=== PATIENT | male | born 1975 | race Caucasian/White ===

== ENCOUNTER 2025-05-07 14:32 | Emergency (ER) | payer OTHER, SELFPAY ==
--- NOTE | ~2025-05-07 | XR_ITS ---
EXAMINATION: XR foot RT min 3V, 05/07/2025 14:42 [employer] HISTORY: injury, pain COMPARISON: No comparisons available. Findings: There are displaced fractures of the shafts of the second and third metatarsals. No dislocation. No significant degenerative changes. Soft tissue swelling. Impression: Fractures detailed above Reviewed, dictated and finalized at location P. [employer] Impression: Fractures detailed above
[2025-05-07 14:35] VITALS: BP 158/94; PULSE 113; RESP 18; TEMP 36.8; O2SAT 97
--- NOTE | 2025-05-07 15:02 | ED_ITS ---
HPI - Extremity Injury (Lower) General Chief Complaint: Extremity Injury, Lower Stated Complaint: right foot injury patient presents to the [facility] with complaints of pain, swelling, and bruising to right foot that began last night. Patient noted getting his foot stuck between a concrete step and his screen door. Noted he is using crutches due to being unable to put any weight on this foot without significantly increased pain. Does have some numbness in the middle toes. Related Data Allergies Allergy/AdvReac Type Severity Reaction Status Date / Time Penicillins Allergy Unknown Unknown Verified 05/07/25 14:33 Review of Systems Constitutional: Constitutional: Reports as per HPI, Denies chills, Denies fatigue, Denies fever(s) and Denies weakness Eyes: Eyes: Reports no additional eye complaints ENT: Reports system reviewed and no additional complaints, except as documented Cardiovascular: Cardiovascular: Reports no additional cardiovascular complaints Respiratory: Respiratory: Reports no additional respiratory complaints Gastrointestinal: Gastrointestinal: Reports no additional gastrointestinal complaints Genitourinary: Genitourinary: Reports no additional male genitourinary complaints Musculoskeletal: Musculoskeletal: Reports as per HPI, Reports arthralgias, Reports joint swelling and Denies muscle cramps Integumentary/Breasts: Skin/Breast: Reports as per HPI, Denies pruritus, Denies rash and Denies skin ulcer Comments: Bruising right foot Neurologic: Reports as per HPI, Reports numbness and Denies weakness Psychiatric: Psychiatric: Reports no additional psychiatric complaints Endocrine: Endocrine: Reports no additional endocrine complaints Hematologic/Lymphatic: Hematologic/Lymphatic: Reports no additional hematologic/lymphatic complaints Allergic/Immunologic: Allergic/Immunologic: Reports no additional allergic/immunologic complaints PMFSH Family History Family History Father Diabetes mellitus Hypertension Mesothelioma Social History Social History (Updated 01/20/25 @ 08:14 by Merline De La Torre [facility]) Smoking status: Never smoker Do You Feel Safe in your Home?: Yes Lack of Transportation: No Lack of Food: Never True Current Housing: I Have Housing Concerned About Future Housing: No Difficulty Paying Gas/Electric Bills: No Difficulty Paying for Meds: No Currently Unemployed: No Education: High School Diploma/GED Difficulty w/ Childcare or Family Care: No Exam Const: General: healthy appearing and no acute distress Nutritional Appearance: well nourished Orientation/consciousness: patient oriented x3 Limitations: no limitations Resp: Effort & Inspection: normal respiratory effort Auscultation: clear to auscultation bilaterally Cardio: Rate: regular rate Rhythm: regular rhythm Skin: General skin exam: normal color Rashes: no rashes Wounds: no wounds Neuro: General: patient oriented x3 Gait exam (Neuro): Normal gait present ( using crutches, limited by pain) Extrem: Right lower extremity: foot Details: normal capillary refill, abnormal to inspection, tenderness Location: of the dorsal foot, abnormal ROM of toe, edema ( moderate) Location: of the dorsal foot, ecchymosis (dorsal foot ) and vascular exam Details: dorsalis pedis pulse present, posterior tibial pulse present and normal capillary refill; abnormal to inspection, ROM of toes abnormal, no unusual warmth, no abrasion, no laceration, no crepitus, no foreign bodies and no puncture wound Psych: Mental Status: mental status grossly normal Affect: normal affect Attitude: cooperative Course Course Level of Care: Express Care Visit Vital Signs Vital signs: Vital Signs Temperature 98.2 F 05/07/25 14:35 Pulse Rate 113 H 05/07/25 14:35 Respiratory Rate 18 05/07/25 14:35 Blood Pressure 158/94 H 05/07/25 14:35 Pulse Oximetry 97 05/07/25 14:35 Oxygen Delivery Room Air 05/07/25 14:35 Temperature 98.2 F 05/07/25 14:35 Pulse Rate 113 H 05/07/25 14:35 Respiratory Rate 18 05/07/25 14:35 Blood Pressure 158/94 H 05/07/25 14:35 Pulse Oximetry 97 05/07/25 14:35 Oxygen Delivery Room Air 05/07/25 14:35 MDM - Extremity Injury (Lower) MDM Narrative Medical decision making narrative: x-rays ordered The patient was evaluated by myself in the express care. History is obtained from patient who is an independent historian and physical exam was performed. Available medical records were reviewed at this time. Exam findings show no acute concerns or changes; patient is non-toxic appearing and is in no distress. Patient is appropriate for outpatient treatment and follow-up. I have evaluated and discussed social determinants of health with the patient that could potentially impact subsequent diagnosis and treatment plans. Differential diagnosis and treatment plan were discussed with the patient. Patient agrees with discussion and after shared medical decision making agrees with plan of care. All questions were answered to the patient's satisfaction. Differential Diagnosis Differential diagnosis: Likely ankle sprain and strain, puncture wound of foot, fracture of toe and ankle fracture Medical Records Attestation: I reviewed the patient's medical records. Imaging Data Attestation: I personally reviewed and interpreted this imaging study as follows: My impression: fractures noted Radiologist's impression: The patient was evaluated by myself in the [facility] care. History is obtained from patient who is an independent historian and physical exam was performed. Available medical records were reviewed at this time. Exam findings show no acute concerns or changes; patient is non-toxic appearing and is in no distress. Patient is appropriate for outpatient treatment and follow-up. I have evaluated and discussed social determinants of health with the patient that could potentially impact subsequent diagnosis and treatment plans. Differential diagnosis and treatment plan were discussed with the patient. Patient agrees with discussion and after shared medical decision making agrees with plan of care. All questions were answered to the patient's satisfaction. Discharge Plan Discharge Clinical Impression: Fracture of second metatarsal bone of right foot, Fracture of third metatarsal bone of right foot Patient Disposition: Home Condition: Stable Instructions: Antibiotic Form, Foot Fracture in Adults (ED) Additional Instructions: There is a fracture shown your x-ray. We have placed you in an immobilization keep this all times. May remove to shower. Call the orthopedic physician you have been given to schedule an appointment as soon as possible. Ensure to take a disc of your x-ray results with you. Ice to the area 15-20 minutes 4-6 times a day until follow up with orthopedics. Minimize activities and rest the affected area as much as possible. 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 You may take over the counter tylenol and ibuprofen as needed for pain. May use the hydrocodone as needed for severe pain. This medication can make you drowsy do not drive, drink alcohol or operate heavy machinery while taking this medication. If you notice significantly increased pain, redness, and numbness, or tingling does to the emergency room for further evaluation of symptoms. Patient Language: [place] Prescriptions: New hydrocodone-acetaminophen 5-325 mg tablet 1 tablet PO Q6H PRN (Reason: pain) Qty: 20 0RF No Action buspirone 15 mg tablet 15 mg PO BID Qty: 60 5RF fluticasone propionate [Flonase Allergy Relief] 50 mcg/actuation spray,suspension 2 spray intranasal DAILY Qty: 18 3RF Rx Instructions: administer into each nostril Follow-up/Referrals: Anthony Garcia MD [Physician, Orthopedics] Kang Rodriguez MD [Primary Care Provider, Family Practice] Stand Alone Forms: Work/School Release IP Time of Disposition: 15:11
== END 2025-05-07 15:44 | disposition home or self-care (01) ==
PROVIDERS: Emergency Provider Nurse Practitioner Family; PCP Family Medicine Adolescent Medicine
DX: S92.331A Displaced fracture of third metatarsal bone, right foot, initial encounter for closed fracture (principal); S92.321A Displaced fracture of second metatarsal bone, right foot, initial encounter for closed fracture; W23.0XXA Caught, crushed, jammed, or pinched between moving objects, initial encounter
CPT/HCPCS: 29515; 73630; 99214; G0463